=== PATIENT | female | born 1995 | race Caucasian/White ===

== ENCOUNTER 2020-02-16 20:40 | Emergency (ER) | payer OTHER, SELFPAY ==
[~2020-02-16] VITALS: Ht 160 cm; Wt 81.6 kg
[2020-02-16 20:58] VITALS: Ht 160 cm; Wt 81.6 kg
[2020-02-16 21:27] LABS: BASOPHIL % 0.8 % (0-2); PLATELET COUNT 132 x10^3mcL (130-400); RED CELL DISTRIBUTION WIDTH 14.9 % (11.5-14.5)
[2020-02-16 21:29] LABS: CALCIUM 8.5 mg/dL (8.5-10.1); CARBON DIOXIDE 26.8 mmol/L (21-32); CHLORIDE SERUM 106 mmol/L (98-107); CREATININE SERUM 0.8 mg/dL (0.6-1.0); GFR1 > 60 mL/min; GLUCOSE SERUM 92 mg/dL (74-106); POTASSIUM SERUM 3.8 mmol/L (3.5-5.1); SODIUM SERUM 141 mmol/L (136-145)
[2020-02-16 21:34] LABS: ALKALINE PHOSPHATASE 45 U/L (46-116); ALT/SGPT 20 U/L (14-59); AST/SGOT 13 U/L (15-37); BILIRUBIN TOTAL 0.9 mg/dL (0.20-1.00); TOTAL PROTEIN, SERUM 7.1 g/dL (6.4-8.2)
[2020-02-16 23:26] VITALS: BP 100/50
== END 2020-02-16 23:26 | disposition home or self-care (01) ==
LOC: ED 20:40
PROVIDERS: Emergency Medicine
DX: R55 Syncope and collapse (principal); R06.4 Hyperventilation; Z88.8 Allergy status to other drugs, medicaments and biological substances
CPT/HCPCS: Q0092; U0003-CS